=== PATIENT | male | born 1955 | race Caucasian/White ===

== ENCOUNTER 2017-07-06 16:29 | Emergency (ER) | payer OTHER ==
[~2017-07-06] VITALS: Ht 175.3 cm; Wt 80.0 kg
[2017-07-06 16:32] VITALS: BP 117/78
== END 2017-07-06 22:15 | disposition left against medical advice (07) ==
LOC: ER 17:18
DX: R53.1 Weakness (principal); Z53.21 Procedure and treatment not carried out due to patient leaving prior to being seen by health care provider